=== PATIENT | male | born 1995 | race Hispanic/Latino ===

== ENCOUNTER 2020-01-01 15:28 | Emergency (ER) | payer SELFPAY ==
[~2020-01-01] VITALS: Ht 172.7 cm; Wt 59.0 kg
[2020-01-01] MEDS ORDERED: SODIUM CHLORIDE 0.9% 1000ML 1,000 ML IV STA (15:52)
--- NOTE | 2020-01-01 15:55 | Emergency Department Note ---
History of Present Illnes History of Present Illness Chief Complaint: General Medicine Complaints History of Present Illness This is a 24 year old male with n/v with diffuse abd and chest cramps. Onset (how long ago): hour(s) Radiation: Reports abdomen Past Medical/Family History Physician Review I have reviewed the patient's past medical and family history. Any updates have been documented here. 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 Other Last Tetanus: NA Physical Exam Related Data Allergies: Coded Allergies: No Known Allergies (Verified , 10/11/09) Physical Exam CONSTITUTIONAL HENT EYES NECK PULMONARY CARDIOVASCULAR GASTROINTESTINAL GENITOURINARY SKIN MUSCULOSKELETAL NEUROLOGICAL PSYCHOLOGICAL Assessment & Plan Reassessment Reassessment time: 17:29 Reassessment patient well appearing. Admission offered several times for dehydration and possible rhabdomyolysis but politely declined. Assessment & Plan Final Impression: (1) Rhabdomyolysis Depart Disposition: HOME, SELF-nursing home Meds No Active Prescriptions or Reported Meds RODDY STEIN DO Jan 01, 2020 15:55
[2020-01-01 16:33] LABS: BASOPHILS # (AUTO) 0.1 (0.0-0.1); BASOPHILS % 0.4 % (0.0-1.0); EOSINOPHILS # (AUTO) 0.1 (0.0-0.4); EOSINOPHILS % 0.5 % (0.0-6.0); HEMOGLOBIN 16.7 g/dL (14.0-18.0); LYMPHOCYTES # (AUTO) 1.3 (1.0-3.2); LYMPHOCYTES % 10.5 % (18.0-39.1); MEAN CORPUSCULAR HEMOGLOBIN 29.4 pg (28-32); MEAN CORPUSCULAR HGB CONC 34.1 g/dL (31-35); MEAN CORPUSCULAR VOLUME 86.3 fL (81-99); MONOCYTES # (AUTO) 0.7 (0.2-0.8); MONOCYTES % 5.9 % (4.4-11.3); NEUTROPHILS # (AUTO) 10.1 (2.1-6.9); NEUTROPHILS % 82.3 % (38.7-80.0); PLATELET COUNT 279 x10e3/uL (140-360); RED BLOOD COUNT 5.68 x10e6/uL (4.3-5.7); RED CELL DISTRIBUTION WIDTH 13.7 % (11.7-14.4)
[2020-01-01 16:52] LABS: ALBUMIN 5.5 g/dL (3.5-5.0); ALBUMIN/GLOBULIN RATIO 1.4 (0.8-2.0); ANION GAP 18.6 mmol/L (8-16); CALCIUM 11.4 mg/dL (8.4-10.2); CREATININE, SERUM 1.52 mg/dL (0.72-1.25); POTASSIUM 3.6 mmol/L (3.5-5.1)
[2020-01-01 16:58] LABS: CREATINE KINASE MB 2.1 ng/mL (0-5.0)
[2020-01-01] MEDS ORDERED: KETOROLAC TROMETHAMINE 30 MG/ML VIAL IV NR (17:15)
[2020-01-01] MEDS ORDERED: ONDANSETRON HCL INJ 2MG/ML 2ML 2 MG/ML VIAL IV NR (17:30)
== END 2020-01-01 18:53 | disposition home or self-care (01) ==
LOC: ER 15:28
DX: R10.9 Unspecified abdominal pain (principal); R11.2 Nausea with vomiting, unspecified; M62.82 Rhabdomyolysis
CPT/HCPCS: 36415; 80053; 82550; 82553; 84484; 85025; 99284; J1885; J2405; J7030